=== PATIENT | male | born 1990 | race Caucasian/White ===

== ENCOUNTER 2022-08-27 18:12 | Emergency (ER) | payer OTHER, SELFPAY ==
--- NOTE | 2022-08-27 18:20 | ECG_ITS ---
Measurements Intervals [place] Rate: 114 P: 51 SD: 204 QRS: 48 QRSD: 90 T: 20 QT: 305 QTc: 420 Interpretive Statements SINUS TACHYCARDIA ABNORMAL RHYTHM ECG NO PREVIOUS ECG AVAILABLE FOR COMPARISON Electronically Signed On 08-30-2022 14:25:13 CDT by Kevan Murillo M.D.
[2022-08-27 18:28] VITALS: BP 153/58; PULSE 151; RESP 16; TEMP 36.7; O2SAT 99
[2022-08-27 18:32] VITALS: BP 129/68; PULSE 108
[2022-08-27 18:37] VITALS: BP 134/75; PULSE 119
[2022-08-27 18:42] VITALS: BP 136/70; PULSE 128
--- NOTE | 2022-08-27 18:47 | ED.CHESTPAIN ---
HPI - Chest Pain General Chief Complaint: Chest Pain Stated Complaint: blood pressure issues Source: patient Mode of arrival: ambulatory Limitations: no limitations History of Present Illness HPI narrative: 32-year-old male presented for complaint of palpitations, onset yesterday. He endorses at the time of onset he had a severe migraine which worsened this morning and resulted in nausea and vomiting. Since then the headache has subsided. He denies photophobia or vision changes. He currently endorses heart feels like it is in overdrive stating he feels pounding in his chest, head, ears and neck. He has not eaten much today. He endorses dizziness with standing and feeling shaky. He denies shortness of breath but states he feels panicky. Endorses history of migraines has not taken any medicine for this for years. Endorses a history of hypertension, was seen 6 months ago at [facility] for alcohol related issues. He was given 3 blood pressure medications at that time. He did not follow-up with the PCP, and ran out of the medication 2 days ago. He currently denies alcohol use, states his last drink was 6 months ago. He endorses vaping marijuana. Related Data Home Medications Medication Instructions Recorded Confirmed amlodipine 10 mg tablet 10 mg PO DAILY 08/27/22 08/27/22 hydralazine 100 mg tablet 100 mg PO TID PRN Anxiety 08/27/22 08/27/22 metoprolol tartrate 50 mg tablet 50 mg PO DAILY 08/27/22 08/27/22 Allergies Allergy/AdvReac Type Severity Reaction Status Date / Time ketorolac [From Toradol] Allergy Unknown Verified 08/27/22 18:29 Review of Systems Review of Systems: CONSTITUTIONAL: Denies body aches, fever, chills, or sweats. EYES: Denies visual changes, photophobia ENT: Denies rhinorrhea, congestion, sore throat, or otalgia. CARDIOVASCULAR: Denies chest pain or edema. RESPIRATORY: Reports sob, denies cough/wheezing. GASTROINTESTINAL: Denies abdominal pain, or diarrhea. GENITOURINARY: Denies dysuria or hematuria. MUSCULOSKELETAL: Denies back pain, joint pain, or myalgia. NEUROLOGIC: Denies headache, numbness, tingling, or weakness. PSYCH: Denies depression Reports anxiety All systems reviewed & are unremarkable except as noted in HPI and below PMFSH Comments At time of signature, I have reviewed and agree with nursing past medical, surgical, social and family history unless otherwise noted. Please see nursing chart for further information. There is no relevant family history pertinent to the presenting complaint Exam Narrative: GENERAL: ill-appearing, in no acute distress. EYES: EOMI. PERRLA, No redness or drainage. Conjunctivae normal. ENT: Mucous membranes pink and moist. No rhinorrhea. CHEST: No respiratory distress. LCTAB HEART: Tachycardic, Regular rhythm. No murmur appreciated. ABDOMEN: Soft, nontender, nondistended, normal active bowel sounds. EXTREMITIES: Normal range of motion. No edema. SKIN: Warm, dry, no rash. Capillary refill normal. Normal skin turgor. NEURO: Alert and oriented x3. Gait steady. PSYCH: appears anxious Course Course Emergency Course: Patient is aware of diagnosis, understands and agrees to treatment plan. Anticipatory guidance given. Portions of this record may have been created with voice recognition software Level of Care: Express Care Visit Vital Signs Vital signs: Vital Signs Temperature 98.1 F 08/27/22 18:28 Pulse Rate 151 H 08/27/22 18:28 Respiratory Rate 16 08/27/22 18:28 Blood Pressure 153/58 H 08/27/22 18:28 Pulse Oximetry 99 08/27/22 18:28 Oxygen Delivery Room Air 08/27/22 18:28 Temperature 98.1 F 08/27/22 18:28 Pulse Rate 128 H 08/27/22 18:42 Respiratory Rate 16 08/27/22 18:28 Blood Pressure 136/70 08/27/22 18:42 Pulse Oximetry 99 08/27/22 18:28 Oxygen Delivery Room Air 08/27/22 18:28 Transfer Transfered to: [facility] Transportation: Other (private vehicle) Transfer r
== END 2022-08-27 19:21 | disposition short-term general hospital (02) ==
LOC: EXPBETH 18:17
PROVIDERS: Emergency Provider Nurse Practitioner Family
DX: R00.2 Palpitations (principal); R42 Dizziness and giddiness; I10 Essential (primary) hypertension
CPT/HCPCS: 93005; 99213; G0463

== ENCOUNTER 2022-11-07 09:19 | Emergency (ER) | payer OTHER, SELFPAY ==
[2022-11-07 09:26] VITALS: BP 129/82; PULSE 87; RESP 16; TEMP 37.3; O2SAT 100
[2022-11-07 09:40] VITALS: BP 128/80; PULSE 90
[2022-11-07 09:43] VITALS: BP 138/88; PULSE 86
[2022-11-07 09:46] VITALS: BP 123/89; PULSE 104
[2022-11-07 09:56] VITALS: BP 123/89; PULSE 104
--- NOTE | 2022-11-07 09:57 | ED.HEATRA ---
HPI - Head Injury General Chief complaint: Fall Stated complaint: Fall Injury/Head/Dizziness Time Seen by Provider: 11/07/22 09:55 Source: patient, RN notes reviewed and old records reviewed Mode of arrival: ambulatory Limitations: no limitations History of Present Illness HPI Narrative: 32 year old male who presents to [facility] with complaints of passing out at work yesterday and he hit his head. Patient reports that he has a small knot on back of his head and he did have a headache after he fell. Patient reports that today he feels a little light headed and dizzy and his vision is a little fuzzy at times, with some nausea., Patient reports that he experiences some dizziness with position changes. Patient reports that he was started on Lexapro on the 26 of October for panic attacks Patient is on medications for hypertension daily.See orthostatic readings. Patient states that he has not had COVID vaccinations or any flu shot. Patient reports that he will no go to the ER at this time. MD Complaint: other (passed out, dizziness) Onset (ago): day(s) (yesterday) Mechanism of Injury: fall Related Data Home Medications Medication Instructions Recorded Confirmed escitalopram oxalate 5 mg tablet 5 mg PO DAILY 11/07/22 11/07/22 metoprolol tartrate 25 mg tablet 25 mg PO BID 11/07/22 11/07/22 Allergies Allergy/AdvReac Type Severity Reaction Status Date / Time ketorolac [From Toradol] Allergy Unknown Verified 11/07/22 09:48 Review of Systems Review of Systems: CONSTITUTIONAL: Denies fever, chills, or sweats. EYES: Reports that his vision is fuzzy at times, no redness, or discharge. ENT: Denies rhinorrhea, congestion, sore throat, or otalgia. CARDIOVASCULAR: Denies chest pain, palpitations, or edema. RESPIRATORY: Denies cough or dyspnea. GASTROINTESTINAL: Denies abdominal pain, states some nausea,no vomiting, or diarrhea. GENITOURINARY: Denies dysuria or hematuria. SKIN: Denies rash or itching. MUSCULOSKELETAL: Denies back pain, joint pain, or myalgia. NEUROLOGIC: Reports headache, no numbness, or weakness, intermittent dizziness with position changes. PSYCHIATRIC: Positive for anxiety or depression. All systems reviewed & are unremarkable except as noted in HPI and below [facility] Social History Social History (Updated 11/14/22 @ 17:28 by IVANA Kelly Smoking status: Current every day smoker Tobacco type: e-cigarettes/vaping Alcohol intake: unknown Substance use: unknown Gender identity (if verbalized by the patient): Male Comments At time of signature, agree with nursing past medical, surgical, social and family history. There is no relevant family history pertinent to the presenting complaint Exam Narrative: GENERAL: Well-appearing, well-nourished, and in no acute distress.anxious HEAD: Normocephalic, atraumatic. EYES: PERRLA and EOMI. no nystagmus ENT: Nares clear, no rhinorrhea or epistaxis. Mucous membranes moist.TM's normal with good light reflex, throat pink with no lesions or swelling NECK: Supple. no lymphadenopathy CHEST: Clear to auscultation. No respiratory distress. SAO2 100% on room air HEART: Regular rate and rhythm. No murmur heard. Normal peripheral pulses. ABDOMEN: Soft, nontender, nondistended, normal active bowel sounds. EXTREMITIES: Normal range of motion. No edema. SKIN: Warm, dry, no rash. NEURO: No focal deficits. Alert and oriented x3.small 1cm raised area on occipital area no break in skin or bruising noted, cranial nerves intact with no deficit. Course Course Level of Care: Express Care Visit Vital Signs Vital signs: Vital Signs Temperature 37.3 C 11/07/22 09:26 Pulse Rate 87 11/07/22 09:26 Respiratory Rate 16 11/07/22 09:26 Blood Pressure 129/82 11/07/22 09:26 Pulse Oximetry 100 11/07/22 09:26 Oxygen Delivery Room Air 11/07/22 09:26 Temperature 37.3 C 11/07/22 09:26 Pulse Rate 104 H 11/07/22 09:56 Respiratory Rate 16 11/07/22 09:26 Blood
== END 2022-11-07 11:15 | disposition home or self-care (01) ==
PROVIDERS: Emergency Provider Registered Nurse; PCP Nurse Practitioner Family
DX: R42 Dizziness and giddiness (principal); R55 Syncope and collapse; Z20.822 Contact with and (suspected) exposure to COVID-19; I10 Essential (primary) hypertension
CPT/HCPCS: 87426; 87804; 99213; C9803; G0463